=== PATIENT | male | born 1950 | race American Indian/Alaskan Native ===

== ENCOUNTER 2017-10-05 21:41 | Emergency (ER) | payer MEDICARE, BC ==
[2017-10-06] MEDS ORDERED: NORCO 5/325 PO ONE (03:02)
[2017-10-06] MEDS ORDERED: NACL 0.9% IR ONE (03:02)
[2017-10-06] MEDS ORDERED: TRIPLE ANTIBIOTIC TP ONE (03:02)
[2017-10-06] MEDS ORDERED: XYLOCAINE 1%/ EPI 1:100,000 INFILTRATI ONE (03:02)
[2017-10-06] MEDS ORDERED: BOOSTRIX IM ONE (03:02)
--- NOTE | 2017-10-06 03:13 | Emergency Department Report ---
HPI - General Chief Complaint: Wound/Laceration Time Seen by Provider: 10/06/17 03:00 - [facility] HPI: 66-year-old male presents today complaining of a laceration to his left knee post dropping a knife and striking his knee at 1800 hrs. yesterday. Positive for active bleeding. Tetanus status unknown. Denies numbness, weakness, paresthesias. Denies fever, chills, nausea, vomiting, chest pain, shortness of breath, abdominal pain. Extremely tender to palpation. ED Past Medical Hx - Past Medical History Previous Medical History?: Yes Hx Hypertension: Yes - Surgical History Past Surgical History?: No - Social History Smoking Status: Never Smoker Substance Use Type: Alcohol - Medications Home Medications: Home Medications Medication Instructions Recorded Confirmed Last Taken Type Acetaminophen/Codeine [Tylenol 1 tab PO Q6H PRN #20 tab 10/06/17 Unknown Rx /Codeine # 3 tab] ED Review of Systems ROS: Stated complaint: L LEG INJURY Other details as noted in HPI Constitutional: denies: chills, fever, malaise Eyes: denies: eye pain ENT: denies: ear pain, throat pain, congestion Respiratory: denies: cough, shortness of breath, wheezing Cardiovascular: denies: chest pain, palpitations Endocrine: no symptoms reported Gastrointestinal: denies: abdominal pain, nausea, vomiting Musculoskeletal: arthralgia Skin: other (laceration). denies: rash Neurological: denies: headache, weakness, numbness, paresthesias Physical Exam - Physical Exam Vital Signs: Vital Signs 10/05/17 21:45 Temperature 98.3 F Pulse Rate 74 Respiratory 18 Rate Blood Pressure 158/94 [Right] O2 Sat by Pulse 100 Oximetry Physical Exam: GENERAL: The patient is well-developed and well-nourished. Patient is in NAD. HEAD: Normocephalic. Atraumatic. NECK: Supple, nontender, without lymphadenopathy. No meningitic signs are noted. CHEST/LUNGS: Clear to auscultation throughout. HEART/CARDIOVASCULAR: Regular rate and rhythm. No murmurs, rubs or gallops. ABDOMEN: Abdomen is soft, nontender. Bowel sounds normoactive. No guarding or rebound tenderness. LEFT KNEE: Tenderness to palpation over lateral aspect of left patella. 1 cm laceration noted over superio-lateral region of the knee. Full range of motion , but painful. Positive active bleeding. Normal sensation. Peripheral pulses intact. Capillary refill less than 2 seconds. MUSCULOSKELETAL: Otherwise musculoskeletal exam unremarkable. Peripheral pulses intact. Capillary refill less than 2 seconds. NEURO: Alert and oriented x 3. Antalgic gait. ED Course Vital Signs 10/05/17 21:45 Temperature 98.3 F Pulse Rate 74 Respiratory 18 Rate Blood Pressure 158/94 [Right] O2 Sat by Pulse 100 Oximetry - Laceration /Wound Repair Left Knee Wound Location: lower extremity Wound Length (cm): 1 Wound's Depth, Shape: superficial Wound Explored: clean Irrigated w/ Saline (ccs): 500 Betadine Prep?: Yes Anesthesia: Lidocaine w/ Epi Volume Anesthetic (ccs): 1 Wound Debrided: minimal Wound Repaired With: sutures Suture Size/Type: 4:0 Number of Sutures: 3 Layer Closure?: No Sterile Dressing Applied?: Yes ED Medical Decision Making - Lab Data Vital Signs 10/05/17 10/06/17 21:45 03:32 Temperature 98.3 F Pulse Rate 74 Respiratory 18 16 Rate Blood Pressure 158/94 [Right] O2 Sat by Pulse 100 Oximetry - Radiology Data Radiology results: report reviewed EXAM: XR KNEE 3V LT HISTORY: tender over lateral patella, + for laceration TECHNIQUE: Three views of the left knee were submitted. FINDINGS: There is no evidence of fracture or joint effusion. All 3 compartments are well maintained. The soft tissues are unremarkable. IMPRESSION: Within normal limits. - Medical Decision Making 66-year-old male presents today with left knee pain and laceration post dropping and sticking a knife over the superior lateral aspect of his left knee. His x-ray results revealed no acute findings. The laceration was closed using 3 4-0 nylon sutures. Patient tolerated the procedure well. Wound care instructions provided. Patient is in no acute distress at this time. He will be discharged home and is encouraged to follow up with a primary care provider. He will be discharged home on Tylenol 3 and is encouraged to return to the emergency room for any worsening symptoms. Critical care attestation.: If time is entered above; I have spent that time in minutes in the direct care of this critically ill patient, excluding procedure time. ED Disposition Clinical Impression: Laceration Knee pain Qualifiers: Chronicity: acute Laterality: left Qualified Code(s): M25.562 - Pain in left knee Disposition: DC- TO HOME OR SELFCARE Is pt being admited?: No Does the pt Need Aspirin: No Condition: Stable Instructions: Knee Sprain (ED), Suture Care (ED), Laceration (ED) Additional Instructions: Have the sutures removed in 8-10 days. Follow-up with primary care provider and orthopedic. Return to the emergency department if symptoms worsen. Prescriptions: Acetaminophen/Codeine [Tylenol /Codeine # 3 tab] 1 tab PO Q6H PRN #20 tab PRN Reason: Pain Referrals: BEATRIZ MORALES [Other] - 3-5 Days KIRBY FERREIRA MD [Staff Physician] - 3-5 Days Forms: Work/School Release Form(ED) Time of Disposition: 05:02
[2017-10-06] MEDS ORDERED: XYLOCAINE 2%/ EPI 1:200,000 INFILTRATI ONE (03:32)
--- NOTE | 2017-10-06 04:29 | XRay Report ---
FINAL REPORT EXAM: XR KNEE 3V LT HISTORY: tender over lateral patella, + for laceration TECHNIQUE: Three views of the left knee were submitted. FINDINGS: There is no evidence of fracture or joint effusion. All 3 compartments are well maintained. The soft tissues are unremarkable. IMPRESSION: Within normal limits.
[2017-10-06 05:19] VITALS: BP 132/84
== END 2017-10-06 05:34 | disposition home or self-care (01) ==
LOC: ED 21:41
DX: S81.012A Laceration without foreign body, left knee, initial encounter (principal); I10 Essential (primary) hypertension; W26.0XXA Contact with knife, initial encounter; Y93.89 Activity, other specified; Y92.89 Other specified places as the place of occurrence of the external cause; Y99.8 Other external cause status
CPT/HCPCS: 90471; 90715; A6250